=== PATIENT | female | born 1990 | race Caucasian/White ===

== ENCOUNTER 2016-05-09 11:34 | Outpatient (CLI) | payer BC ==
[~2016-05-09] VITALS: Ht 160 cm; Wt 71.2 kg
--- OUTSIDE RECORDS SUMMARY | 2016-05-09 11:37 | XMS REPORT ---
Author Author NELI ELI [facility] [place] eClinicalWorks Address Unknown Phone Unavailable Care Team Providers Care Hard Tile Setter Name Role Phone NELI ELI Unavailable Allergies No Known Allergies Problems Problem Type Condition ICD-9 Code Onset Dates Condition Status Assessment Screening for substance abuse V82.9 Active Assessment Encounter for tuberculin skin test V74.1 Active Assessment Examination, physical, employee V70.5 Active Medications No Known Medications Procedures Procedure Coding System Code Date TB INTRADERMAL TEST CPT-4 33495 Oct 08, 2014 Office Visit, Est Pt., Level 2 CPT-4 00551 Oct 08, 2014 DRUG SCREEN NON TLC DEVICES CPT-4 31002 Oct 08, 2014 Vital Signs Date/Time: Oct 08, 2014 Blood Pressure Systolic 128 mmHg Cardiac Monitoring Heart Rate 100 bpm Temperature 97.8 F Blood Pressure Diastolic 70 mmHg Results No Known Results Summary Purpose eClinicalWorks Submission
[2016-05-09 11:50] VITALS: BP 144/91
[2016-05-09 12:00] VITALS: BP 135/89
[2016-05-09 12:20] VITALS: BP 133/84
[2016-05-09] MEDS ORDERED: PREN1TAB86 PO (12:27)
[2016-05-09 12:29] LABS: BASOPHILS % (AUTO) 0 % (0-10); EOSINOPHILS # (AUTO) 0.4 10^3/uL (0.0-0.3); EOSINOPHILS % (AUTO) 3 % (0-10); LYMPHOCYTES % (AUTO) 17 % (12-44); MEAN CORPUSCULAR HEMOGLOBIN 31 PG (25-34); MEAN CORPUSCULAR HGB CONC 35 G/DL (32-36); MEAN CORPUSCULAR VOLUME 89 FL (80-99); MEAN PLATELET VOLUME 11.5 FL (7.4-10.4); MONOCYTES # (AUTO) 0.8 X 10^3 (0.0-1.0); MONOCYTES % (AUTO) 7 % (0-12); NEUTROPHILS # (AUTO) 8.8 X 10^3 (1.8-7.8); NEUTROPHILS % (AUTO) 73 % (42-75); PLATELET COUNT 180 10^3/uL (130-400); RED BLOOD COUNT 4.12 10^6/uL (4.35-5.85); RED CELL DISTRIBUTION WIDTH 13.5 % (10.0-14.5); WHITE BLOOD COUNT 12.1 10^3/uL (4.3-11.0)
[2016-05-09 12:35] VITALS: BP 118/79
[2016-05-09 12:48] LABS: ALANINE AMINOTRANSFERASE 9 U/L (0-55); ANION GAP 11 MMOL/L (5-14); ASPARTATE AMINO TRANSFERASE 12 U/L (5-34); BILIRUBIN,TOTAL 0.1 MG/DL (0.1-1.0); BLOOD UREA NITROGEN 10 MG/DL (7-18); BUN/CREATININE RATIO 14; CALCIUM 8.9 MG/DL (8.5-10.1); CARBON DIOXIDE 18 MMOL/L (21-32); CHLORIDE 109 MMOL/L (98-107); CREATININE SERUM 0.71 MG/DL (0.60-1.30); GFR ESTIMATED > 60; GLUCOSE 100 MG/DL (70-105); LACTATE DEHYDROGENASE 130 U/L (125-220); POTASSIUM 3.9 MMOL/L (3.6-5.0); SODIUM 138 MMOL/L (135-145); TOTAL PROTEIN 5.7 G/DL (6.4-8.2)
[2016-05-09 12:50] VITALS: BP 120/79
--- NOTE | 2016-05-09 20:01 | Physician Query-Final Dx ---
Clinic Account Progress/Dx Physician Query: Date of Service May 09, 2016 at 11:34 DIAGNOSIS: Diagnosis third trimester right upper quadrant pain BENSON URBINA DO May 09, 2016 20:01
[2016-05-27] MEDS ORDERED: DOCU100C37 PO (12:06)
[2016-05-27] MEDS ORDERED: HYDR-3812 PO (12:06)
[2016-05-27] MEDS ORDERED: IBUP-1780 PO (12:06)
== END 2016-05-09 13:10 | disposition home or self-care (01) ==
LOC: WSo 11:34 → LDRP 11:34 → WSo 13:10
PROVIDERS: ATTEND Obstetrics & Gynecology
DX: O99.89 Other specified diseases and conditions complicating pregnancy, childbirth and the puerperium (principal); R10.11 Right upper quadrant pain; Z3A.38 38 weeks gestation of pregnancy
CPT/HCPCS: 36415; 80053; 83615; 84550; 85025; 99213

== ENCOUNTER 2016-05-24 10:55 | Inpatient (IN) | payer BC ==
[2016-05-24] VITALS (14 sets, daily range): BP systolic 119–143; BP diastolic 68–94
[~2016-05-24] VITALS: Ht 152.4 cm; Wt 72.1 kg
[~2016-05-24 10:55] MED LIST: PREN1TAB86 PO
[2016-05-24] MEDS ORDERED: NS IV 1000 ML 1,000 ML ONE (11:32)
[2016-05-24] MEDS ORDERED: MISOPROSTOL 100 MCG (CYTOTEC) TAB PO ONE ×2 (11:45→16:00)
[2016-05-24 12:05] LABS: BASOPHILS % (AUTO) 0 % (0-10); EOSINOPHILS # (AUTO) 0.4 10^3/uL (0.0-0.3); EOSINOPHILS % (AUTO) 4 % (0-10); LYMPHOCYTES # (AUTO) 2.1 X 10^3 (1.0-4.0); LYMPHOCYTES % (AUTO) 19 % (12-44); MEAN CORPUSCULAR HEMOGLOBIN 31 PG (25-34); MEAN CORPUSCULAR HGB CONC 35 G/DL (32-36); MEAN CORPUSCULAR VOLUME 90 FL (80-99); MEAN PLATELET VOLUME 12.2 FL (7.4-10.4); MONOCYTES # (AUTO) 0.7 X 10^3 (0.0-1.0); MONOCYTES % (AUTO) 6 % (0-12); NEUTROPHILS # (AUTO) 8.1 X 10^3 (1.8-7.8); NEUTROPHILS % (AUTO) 71 % (42-75); PLATELET COUNT 178 10^3/uL (130-400); RED BLOOD COUNT 4.24 10^6/uL (4.35-5.85); RED CELL DISTRIBUTION WIDTH 13.9 % (10.0-14.5); WHITE BLOOD COUNT 11.4 10^3/uL (4.3-11.0)
[2016-05-24] MEDS: D5 LR IV SOLUTION 1,000 ML IV SCH ×2 (12:55→20:45)
[2016-05-24 13:34] LABS: BILIRUBIN,URINE NEGATIVE (NEGATIVE); KETONES,URINE NEGATIVE (NEGATIVE); LEUKOCYTE ESTERASE ,URINE 1+ (NEGATIVE); NITRITE,URINE NEGATIVE (NEGATIVE); PH,URINE 7 (5-9); PROTEIN,URINE NEGATIVE (NEGATIVE); UROBILINOGEN,URINE NORMAL (NORMAL)
[2016-05-24 13:54] LABS: WBC,URINE RARE /HPF
[2016-05-24] MEDS ORDERED: CATHETER FLUSH 10 ML SYR IV SCH (14:00)
--- NOTE | 2016-05-24 16:55 | History & Physical-OB ---
OB - Chief Complaint & HPI Date Date of Admission: Date of Admission: May 24, 2016 at 10:55 am Chief Complaint/History OB-Reason for Admission/Chief: Induction of Labor Hx : 1 Hx Para: 0 Expected Date of Delivery: May 19, 2016 Gestational Age in Weeks: 40 Gestational Age in Days: 5 Indication for induction: post dates, medical complication (GHTN in office today) Admission Nurse Assessment Rev: Yes History of Labs A pos Antibody neg RI RPR NR HBsAg NR HIV NR GC neg GBS neg Allergies and Home Medications Allergies Coded Allergies: No Known Drug Allergies (Unverified , 05/09/16) Home Medications Vit W-Ca,Fe,FA(<1 mg) 1 Each Tablet, 1 EACH PO DAILY, (Reported) OB - History Hx of Present Care: Yes Ultrasounds: Normal mid trimester US Obstetrical Complications: Gestational Hypertension, Other (Post dates) Medical Complications: None Delivery History Adverse Rxn to Tranfusion: No Patient Past Medical History n/a Social History/Family History Recent Infectious Disease Expo: No Alcohol Use: Denies Use Recreational Drug Use: No Immunizations Date of Influenza Vaccine: Dec 04, 2015 OB - Admission Exam Physical Exam Vitals: Vital Signs 05/24/16 05/24/16 11:05 15:00 Temp 99.0 Pulse 82 Resp 18 B/P (MAP) 131/81 O2 Delivery Room Air HEENT: NCAT Heart: Rhythm Normal Lungs: Clear Abdomen: Gravid Extremities: Normal Reflexes: Normal Cervical Dilatation: 1cm Effacement: 75% Station: -1 Membranes: Intact Heart Rate: 130's Decelerations: No Decelerations Short Term Variability: Present Half-Way Variability: Average (6-25) Contractions on Admission: >10 Minutes Apart Intensity: Mild Cuevas Scoring Tool (Modified) Dilation (cm): 1-2cm (1) Effacement (%): 51-79% (2) Descent/Station: -2 (1) Cervix Consistency: Soft (2) Cervix Position: Anterior (2) Subtract 1 point for: Nulliparity (-1) Cuevas Score: 7 Labs Laboratory Tests Test 05/24/16 11:45 05/24/16 11:55 Range/Units White Blood Count 11.4 H 4.3-11.0 10^3/uL Red Blood Count 4.24 L 4.35-5.85 10^6/uL Hemoglobin 13.1 11.5-16.0 G/DL Hematocrit 38 35-52 % Mean Corpuscular Volume 90 80-99 FL Mean Corpuscular Hemoglobin 31 25-34 PG Mean Corpuscular Hemoglobin Concent 35 32-36 G/DL Red Cell Distribution Width 13.9 10.0-14.5 % Platelet Count 178 130-400 10^3/uL Mean Platelet Volume 12.2 H 7.4-10.4 FL Neutrophils (%) (Auto) 71 42-75 % Lymphocytes (%) (Auto) 19 12-44 % Monocytes (%) (Auto) 6 0-12 % Eosinophils (%) (Auto) 4 0-10 % Basophils (%) (Auto) 0 0-10 % Neutrophils # (Auto) 8.1 H 1.8-7.8 X 10^3 Lymphocytes # (Auto) 2.1 1.0-4.0 X 10^3 Monocytes # (Auto) 0.7 0.0-1.0 X 10^3 Eosinophils # (Auto) 0.4 H 0.0-0.3 10^3/uL Basophils # (Auto) 0.0 0.0-0.1 10^3/uL Urine Color YELLOW Urine Clarity CLEAR Urine pH 7 5-9 Urine Specific Orrum 1.005 L 1.016-1.022 Urine Protein NEGATIVE NEGATIVE Urine Glucose (UA) NEGATIVE NEGATIVE Urine Ketones NEGATIVE NEGATIVE Urine Nitrite NEGATIVE NEGATIVE Urine Bilirubin NEGATIVE NEGATIVE Urine Urobilinogen NORMAL NORMAL MG/DL Urine Leukocyte Esterase 1+ H NEGATIVE Urine RBC (Auto) NEGATIVE NEGATIVE Urine RBC NONE /HPF Urine WBC RARE /HPF Urine Squamous Epithelial Cells 5-10 /HPF Urine Crystals NONE /LPF Urine Bacteria FEW H /HPF Urine Casts NONE /LPF Urine Mucus NEGATIVE /LPF Urine Culture Indicated NO OB - Assessment/Plan/Diagnosis Assessment Assessment: induction of labor Plan Induction Method: per Misoprostol Protocol Discharge Diagnosis Diagnosis: 25 yo @ 40.5 Post dates GHTN GBS neg LATOYA DRAKE DO May 24, 2016 4:55 pm
[2016-05-24] MEDS ORDERED: CETI10CA PO (17:35)
[2016-05-24] MEDS ORDERED: MISOPROSTOL 100 MCG (CYTOTEC) TAB ONE (21:22)
[2016-05-24] MEDS: MISOPROSTOL 100 MCG (CYTOTEC) TAB PO SCH (21:29)
[2016-05-25] VITALS (66 sets, daily range): BP systolic 106–165; BP diastolic 55–98
[2016-05-25] MEDS: MISOPROSTOL 100 MCG (CYTOTEC) TAB PO SCH ×2 (01:27→05:31)
[2016-05-25] MEDS: D5 LR IV SOLUTION 1,000 ML IV SCH ×2 (04:35→12:24)
[2016-05-25] MEDS ORDERED: ONDANSETRON 4 MG/2 ML (SDV) Z0FRAN IVP ONE (06:00)
[2016-05-25] MEDS: LACTATED RINGERS 1,000 ML IV ONE ×2 (08:37→09:37)
[2016-05-25] MEDS ORDERED: SUFENTA 0.6MCG/ML BUPIVA 0.125 100 ML ONE (08:49)
[2016-05-25] MEDS ORDERED: BUPIVACAINE 0.25% 30 ML (SENSORCAINE) VIAL ONE (09:04)
[2016-05-25] MEDS ORDERED: fentaNYL INJECTION 100 MCG/2 ML AMP ONE ×2 (09:04→18:59)
[2016-05-25] MEDS ORDERED: LIDOCAINE PF 2% 10 ML (XYLOCAINE) AMP ONE ×2 (09:05→18:59)
[2016-05-25] MEDS ORDERED: diphenhydrAMINE 50 MG/ML INJ (BENADRYL) IV PRN (10:00)
[2016-05-25] MEDS ORDERED: NALOXONE 0.4 MG/ML 1 ML (NARCAN) VIAL IV PRN (10:00)
[2016-05-25] MEDS ORDERED: EPIDURAL (SUFENTA 0.6MCG/ML BUPIVA 0.125%) 100 ML BAG EPI SCH (10:00)
[2016-05-25] MEDS ORDERED: ONDANSETRON 4 MG/2 ML (SDV) Z0FRAN IV PRN (10:00)
[2016-05-25] MEDS ORDERED: LIDOCAINE PF 2% 10 ML (XYLOCAINE) AMP INJ ONE (10:00)
[2016-05-25] MEDS ORDERED: CATHETER FLUSH 10 ML SYR IV PRN ×2 (10:00→18:45)
[2016-05-25] MEDS ORDERED: BUPIVACAINE 0.25% 30 ML (SENSORCAINE) VIAL INJ ONE (10:00)
[2016-05-25] MEDS ORDERED: fentaNYL INJECTION 100 MCG/2 ML AMP INJ ONE (10:00)
[2016-05-25] MEDS ORDERED: OXYTOCIN/NORMAL SALINE 500 ML IV SCH (10:12)
[2016-05-25] MEDS ORDERED: OXYTOCIN/NORMAL SALINE 500 ML IV ONE ×3 (10:13→19:33)
[2016-05-25] MEDS ORDERED: ACETAMINOPHEN 500 MG TAB (TYLENOL) PO NR (14:30)
[2016-05-25] MEDS ORDERED: MINERAL OIL CONCENTRATE 99.9% 15 ML UDC ONE (17:38)
[2016-05-25] MEDS ORDERED: LIDOCAINE/EPI 1%-1:200,000 (XYLOCAINE) 30 ML VIAL ONE (17:38)
[2016-05-25] MEDS ORDERED: NS (IVPB) 50 ML ONE (18:40)
[2016-05-25] MEDS ORDERED: ceFAZolin 1,000 MG (ANCEF) VIAL ONE (18:40)
[2016-05-25] MEDS ORDERED: FAMOTIDINE 20MG/2ML IV (PEPCID) IV ONE (18:45)
[2016-05-25] MEDS ORDERED: METOCLOPRAMIDE INJ 10 MG/2 ML (REGLAN) IV ONE (18:45)
[2016-05-25] MEDS ORDERED: CITRIC ACID/SOB CIT (BICITRA) 30 ML UDC PO ONE (18:45)
[2016-05-25] MEDS ORDERED: ceFAZolin INJECTION 1,000 MG in NS (IVPB) 50 ML IV ONE (18:45)
--- NOTE | 2016-05-25 18:49 | Progress Note-Standard ---
Standard Progress Note Progress Notes/Assess & Plan Progress/Assessment & Plan This 25-year-old female was admitted last evening for induction of labor due to gestational hypertension noted at her post dates visit at 40 weeks. The patient was given cervical ripening overnight with misoprostol, and had spontaneous rupture membranes at approximate 6 a.m. this morning. The patient became uncomfortable around 830 and it made a moderate amount of cervical change from her admission to 4 cm and requested an epidural. After receiving her epidural she was started on Pitocin to augment her labor pattern and achieve an adequate contraction pattern. The patient then slowly progressed throughout the day to complete at approximately 4 o'clock this afternoon, she was allowed to labor down as station of the vertex was found to be 0 to - 1. Active pushing was started at approximately 5 o'clock, at which point I presented about 630 to evaluate the patient. The skull had no progress past previously mentioned 0 to -1 station however there was a significant amount of caput noted. There was also some low-grade temperatures noted above 100.4, Tylenol was given intrapartum as well. Due to cephalopelvic disproportion discussed the patient proceed with delivery. Risk of this procedure was discussed with the patient in detail, after all of her questions were answered with her and mother present consent is obtained and we await anesthesia debris and the procedure. LATOYA DRAKE DO May 25, 2016 6:49 pm
[2016-05-25] MEDS ORDERED: BUPIVACAINE 0.5% 30 ML (SENSORCAINE) VIAL ONE (18:59)
[2016-05-25] MEDS ORDERED: ONDANSETRON 4 MG/2 ML (SDV) Z0FRAN ONE (18:59)
[2016-05-25] MEDS ORDERED: LACTATED RINGERS 1,000 ML IV ONE (18:59)
[2016-05-25] MEDS ORDERED: KETOROLAC 30 MG/ML VIAL ONE (19:00)
[2016-05-25] MEDS ORDERED: MEASLES,MUMPS,RUBELLA 1 EA INJ SC SCH (19:30)
[2016-05-25] MEDS ORDERED: TETANUS,DIPTH,PERTUSS P/F (BOOSTRIX) 0.5 ML VIAL IM SCH (19:30)
[2016-05-25] MEDS ORDERED: HYDROmorphone (DILAUDID) 2 MG/ML VIAL IVP PRN (19:30)
[2016-05-25] MEDS: KETOROLAC 30 MG/ML VIAL IVP SCH (19:30)
[2016-05-25] MEDS: DOCUSATE SODIUM 100 MG (COLACE) CAP PO SCH (21:19)
[2016-05-25] MEDS ORDERED: CATHETER FLUSH 10 ML SYR IV SCH (22:00)
[2016-05-25] MEDS: HYDROcodone/APAP 5 MG/325 MG (LORTAB) TAB PO PRN ×2 (22:12→23:05)
[2016-05-26] MEDS: KETOROLAC 30 MG/ML VIAL IVP SCH ×2 (01:55→08:37)
[2016-05-26 04:05] VITALS: BP 112/62
[2016-05-26 06:24] LABS: BASOPHILS % (AUTO) 0 % (0-10); EOSINOPHILS # (AUTO) 0.2 10^3/uL (0.0-0.3); EOSINOPHILS % (AUTO) 1 % (0-10); LYMPHOCYTES # (AUTO) 2.4 X 10^3 (1.0-4.0); LYMPHOCYTES % (AUTO) 13 % (12-44); MEAN CORPUSCULAR HEMOGLOBIN 31 PG (25-34); MEAN CORPUSCULAR HGB CONC 34 G/DL (32-36); MEAN CORPUSCULAR VOLUME 91 FL (80-99); MEAN PLATELET VOLUME 11.9 FL (7.4-10.4); MONOCYTES # (AUTO) 1.2 X 10^3 (0.0-1.0); MONOCYTES % (AUTO) 7 % (0-12); NEUTROPHILS # (AUTO) 13.8 X 10^3 (1.8-7.8); NEUTROPHILS % (AUTO) 79 % (42-75); PLATELET COUNT 165 10^3/uL (130-400); RED BLOOD COUNT 3.64 10^6/uL (4.35-5.85); RED CELL DISTRIBUTION WIDTH 13.9 % (10.0-14.5); WHITE BLOOD COUNT 17.5 10^3/uL (4.3-11.0)
[2016-05-26 07:45] VITALS: BP 136/78
[2016-05-26] MEDS: HYDROcodone/APAP 5 MG/325 MG (LORTAB) TAB PO PRN ×2 (08:36→13:01)
[2016-05-26] MEDS: DOCUSATE SODIUM 100 MG (COLACE) CAP PO SCH ×2 (08:36→21:05)
--- NOTE | 2016-05-26 09:19 | Progress Note-Standard ---
Standard Progress Note Progress Notes/Assess & Plan Progress/Assessment & Plan Patient is POD 1 from PLT. Pain well controlled. Ambulating and voiding freely. No other concerns voiced. Lochia light. Vital Sign - Last 24 Hours 05/25/16 05/25/16 05/25/16 05/25/16 09:20 09:23 09:26 09:29 Pulse 76 75 81 80 Resp 20 20 20 20 B/P (MAP) 155/94 144/86 151/91 156/90 Pulse Ox 99 99 98 98 O2 Delivery Room Air Room Air Room Air Room Air 05/25/16 05/25/16 05/25/16 05/25/16 09:32 09:35 09:40 09:43 Pulse 91 83 93 78 Resp 20 20 20 20 B/P (MAP) 157/90 131/82 130/75 129/67 Pulse Ox 98 99 99 98 O2 Delivery Room Air Room Air Room Air Room Air 05/25/16 05/25/16 05/25/16 05/25/16 09:46 09:50 09:55 10:02 Temp 100.4 98.9 Pulse 98 96 85 94 Resp 18 20 20 18 B/P (MAP) 129/71 134/74 117/75 121/65 Pulse Ox 97 98 98 O2 Delivery Room Air Room Air Room Air Room Air 05/25/16 05/25/16 05/25/16 05/25/16 10:06 10:12 10:17 10:23 Pulse 97 76 91 92 Resp 20 20 20 18 B/P (MAP) 128/84 117/67 119/77 119/70 O2 Delivery Room Air Room Air Room Air Room Air 05/25/16 05/25/16 05/25/16 05/25/16 10:27 10:32 10:52 11:06 Pulse 87 87 80 75 Resp 18 18 18 18 B/P (MAP) 116/74 109/69 121/74 112/67 O2 Delivery Room Air Room Air Room Air Room Air 05/25/16 05/25/16 05/25/16 05/25/16 11:22 11:35 11:52 12:05 Temp 99.7 Pulse 75 69 73 71 Resp 18 18 18 18 B/P (MAP) 118/69 114/68 120/69 112/68 O2 Delivery Room Air Room Air Room Air Room Air 305/25/16 05/25/16 05/25/16 12:22 12:35 12:51 13:06 Temp 99.0 Pulse 71 71 77 81 Resp 18 18 18 18 B/P (MAP) 118/72 120/76 124/65 115/64 O2 Delivery Room Air Room Air Room Air Room Air 05/25/16 05/25/16 05/25/16 05/25/16 13:20 13:35 13:51 14:06 Temp 100.4 101.0 Pulse 81 86 76 74 Resp 18 18 18 18 B/P (MAP) 119/67 129/84 106/59 120/57 O2 Delivery Room Air Room Air Room Air Room Air 05/25/16 05/25/16 05/25/16 05/25/16 14:21 14:36 14:50 15:06 Pulse 76 74 78 84 Resp 18 18 18 18 B/P (MAP) 119/55 109/56 113/57 115/62 O2 Delivery Room Air Room Air Room Air Room Air 05/25/16 05/25/16 05/25/16 05/25/16 15:21 15:36 15:51 16:07 Temp 100.1 100.4 Pulse 81 88 88 75 Resp 18 18 18 18 B/P (MAP) 118/60 128/75 128/75 123/66 O2 Delivery Room Air Room Air Room Air Room Air 05/25/16 05/25/16 05/25/16 05/25/16 16:20 16:35 16:51 17:05 Temp 99.9 Pulse 77 75 93 97 Resp 18 18 18 18 B/P (MAP) 135/92 140/97 119/76 134/87 O2 Delivery Room Air Room Air Room Air Room Air 05/25/16 05/25/16 05/25/16 05/25/16 17:23 17:36 17:50 18:06 Temp 99.7 Pulse 80 85 80 144 Resp 18 18 18 18 B/P (MAP) 128/79 125/78 131/83 131/73 O2 Delivery Room Air Room Air Room Air Room Air 05/25/16 05/25/16 05/25/16 05/25/16 18:22 18:35 18:50 21:59 Temp 98.1 Pulse 141 97 102 87 Resp 18 18 18 18 B/P (MAP) 165/80 148/70 142/77 120/74 Pulse Ox 95 O2 Delivery Room Air Room Air Room Air Room Air 05/25/16 05/26/16 23:50 04:05 Temp 98.1 98.8 Pulse 84 84 Resp 18 18 B/P (MAP) 117/64 112/62 Pulse Ox 97 96 O2 Delivery Room Air Room Air Intake and Output 05/25/16 05/25/16 05/26/16 15:00 23:00 07:00 Intake Total 1000 ml 50 ml 2300 ml Output Total 75 ml 600 ml Balance 1000 ml -25 ml 1700 ml Laboratory Tests Test 05/26/16 06:00 Range/Units White Blood Count 17.5 H 4.3-11.0 10^3/uL Red Blood Count 3.64 L 4.35-5.85 10^6/uL Hemoglobin 11.2 L 11.5-16.0 G/DL Hematocrit 33 L 35-52 % Mean Corpuscular Volume 91 80-99 FL Mean Corpuscular Hemoglobin 31 25-34 PG Mean Corpuscular Hemoglobin Concent 34 32-36 G/DL Red Cell Distribution Width 13.9 10.0-14.5 % Platelet Count 165 130-400 10^3/uL Mean Platelet Volume 11.9 H 7.4-10.4 FL Neutrophils (%) (Auto) 79 H 42-75 % Lymphocytes (%) (Auto) 13 12-44 % Monocytes (%) (Auto) 7 0-12 % Eosinophils (%) (Auto) 1 0-10 % Basophils (%) (Auto) 0 0-10 % Neutrophils # (Auto) 13.8 H 1.8-7.8 X 10^3 Lymphocytes # (Auto) 2.4 1.0-4.0 X 10^3 Monocytes # (Auto) 1.2 H 0.0-1.0 X 10^3 Eosinophils # (Auto) 0.2 0.0-0.3 10^3/uL Basophils # (Auto) 0.0 0.0-0.1 10^3/uL Incision: c/d/i Diagnosis: POD 1 PLTCS CPD GHTN Plan: continue routine PO care anticipate dc tomorrow pending progression LATOYA DRAKE DO May 26, 2016 9:19 am
[2016-05-26 12:08] VITALS: BP 120/75
[2016-05-26] MEDS ORDERED: IBUPROFEN 600 MG (MOTRIN) TAB PO ONE (14:37)
--- NOTE | 2016-05-26 14:52 | Anesthesia-Regional Post-Op ---
Regional Patient Condition Mental Status: Alert, Oriented x3 Circulation: Same as Pre-Op Headache: Absent Sensation: Full Recovery Motor Block: Absent Post Op Complications Complications None Follow Up Care/Instructions Patient Instructions None needed. Anesthesia/Patient Condition Patient is doing well, no complaints, stable vital signs, no apparent adverse anesthesia problems. No complications reported per nursing. SARAHY DUFF CRNA May 26, 2016 14:52
[2016-05-26 16:00] VITALS: BP 128/75
[2016-05-26] MEDS ORDERED: IBUPROFEN 800 MG (MOTRIN) TAB PO ONE (20:54)
[2016-05-26 21:05] VITALS: BP 124/77
[2016-05-26] MEDS: IBUPROFEN 800 MG (MOTRIN) TAB PO SCH (21:05)
[2016-05-27] MEDS: IBUPROFEN 800 MG (MOTRIN) TAB PO SCH ×2 (02:54→09:39)
[2016-05-27 03:30] VITALS: BP 130/81
[2016-05-27] MEDS: HYDROcodone/APAP 5 MG/325 MG (LORTAB) TAB PO PRN (03:32)
[2016-05-27] MEDS: KETOROLAC 30 MG/ML VIAL IVP SCH (08:20)
[2016-05-27 09:00] VITALS: BP 122/88
--- NOTE | 2016-05-27 09:21 | OPERATIVE REPORT ---
PROCEDURE PHYSICIAN: JEYSON DRAKE DATE OF PROCEDURE: 05/25/2016 PREOPERATIVE DIAGNOSIS: 1. 25-year-old G1, P0 at 40 weeks gestation. 2. tachycardia. 3. Cephalopelvic disproportion. POSTOPERATIVE DIAGNOSES: 1. 25-year-old G1, P0, at 40 weeks gestation. 2. tachycardia. 3. Cephalopelvic disproportion. PROCEDURE: Primary low transverse section. SURGEON: Dr. Jeyson Drake. FLOOR STEWARD/STEWARDESS: Alie Ramírez APRN, who was required for adequate retraction and manipulation of structures during the procedure. ANESTHESIA: Bolused epidural. ESTIMATED BLOOD LOSS: 350 mL. URINE OUTPUT: 100 mL, clear at the end of the procedure. FLUIDS: 1300 mL of lactated ringer solution. FINDINGS: Findings is a live male infant weighing 7 pounds 11 ounces, Apgars 8 and 9. Grossly normal appearing uterus, bilateral fallopian tubes, and ovaries. SPECIMEN SENT: Placenta. INDICATIONS FOR THE PROCEDURE: This 25-year-old female was brought in for induction. Please see preoperative note for complete details, pertaining to indications for procedure as well as her labor course in detail, as well as risk discussed. The patient was taken to the operating room, where epidural analgesia is bolused. The patient was placed in the supine position with leftward tilt, prepped and draped in the normal sterile fashion. A timeout is performed and anesthesia is tested. Once anesthesia is tested and found to be adequate, make a Pfannenstiel skin incision using a knife and carried down to the underlying fascia using Bovie cautery. The fascial incision was extended laterally using Bovie cautery. The superior aspect of the fascial incision was then grasped with Shoshana clamps, tented upward and dissected off the underlying rectus muscles. The inferior aspect of the fascial incision was then grasped with Shoshana clamps, tented upward and dissected off the underlying rectus muscles. The rectus muscles were then dissected down the midline using Griffin scissors exposing the peritoneum which is entered bluntly and extended using Metzenbaum scissors carefully with visualizing underlying bowel and bladder. One adequate peritoneal access is obtained Leo ring retractor was placed in the peritoneal incision which offers excellent lateral sidewall retraction. I then identify the lower uterine segment which was found to be thinned out. I make an incision through the vesicouterine peritoneum and then bluntly dissect the peritoneum off of the lower uterine segment. I then proceed with my myotomy until membranes are visualized at which point I rupture them iatrogenically using extension of this incision and extend the incision laterally and superiorly using banded scissors. I then find the in the vertex presentation occiput posterior. I elevate the infant's head up to the incision where it is delivered through the incision. With gentle fundal pressure the nares and oropharynx are bulb suctioned. Anterior posterior shoulders are delivered and is brought to the operative field where the cord is doubly clamped and cut and the infant is handed off to the awaiting pediatric nurses in attendance. The cord blood was collected, three vessel cord with intact placenta is delivered spontaneously thereafter. IV Pitocin is initiated to facilitate uterine contraction. Uterine fundus becomes firmer by manual massage. The uterus is then exteriorized and cleared of endometrial clots and debris. I then close the uterine incision using 0 Vicryl suture in a running lock fashion. A second layer of imbricating 0 Monocryl is placed. Excellent hemostasis is noted after doing so. I then placed the uterus back within the pelvis and copiously irrigate the pelvis using normal saline. There is no active bleeding noted from any my dissection planes. I then place intercede and antiadhesive over my low transverse incision and proceed with closing the peritoneum using 3-0 Vicryl suture in a running fashion. The rectus muscles are reapproximated using 3-0 Vicryl suture in an interrupted fashion. The fascia is reapproximated using 0 Vicryl suture in a running fashion. Subcutaneous tissues reapproximated using 3-0 plain in interrupted subcutaneous stitch and the skin is reapproximated using 4-0 Monocryl in a running, subcuticular. Dermabond is applied to the incision, sterile dressing and adhesed white tape. The patient tolerated the procedure well and was taken to the recovery area in stable condition. Lap and sponge counts correct at the end of the procedures, instrument count is correct as well. 1 gram of Ancef given preoperatively for infection prophylaxis. Job ID: [id number] Dictated Date: 05/25/2016 19:56:59 Regional Operations Manager Date: 05/27/2016 09:07:58 / trudy
[2016-05-27] MEDS: DOCUSATE SODIUM 100 MG (COLACE) CAP PO SCH (09:39)
[2016-05-27] MEDS ORDERED: IBUP-1780 PO (12:06)
[2016-05-27] MEDS ORDERED: HYDR-3812 PO (12:06)
[2016-05-27] MEDS ORDERED: DOCU100C37 PO (12:06)
--- NOTE | 2016-05-27 12:07 | Discharge Inst-Women's Service ---
Discharge Inst-Women's Serv Depart Medication/Instructions New, Converted or Re-Newed RX: RX on Chart Consults/Follow Up Additional Follow Up: Yes Orders/Referrals Dr. Anderson in 7-10 days and in 6 weeks Activity Activity: Activity as Tolerated Driving Instructions: No Driving for 1 Week NO SMOKING: NO SMOKING Nothing Inside Vagina: No Douching, No [place], No Tampons Diet Discharge Diet: No Restrictions Symptoms to Report to : Bleeding Excessive, Pain Increased, Fever Over 101 Degrees F, Vaginal Bleeding Increase, Questions/Concerns For Any Problems or Questions: Contact Your Physician Skin/Wound Care Infection Signs and Symptoms: Increased Redness, Foul Odor of Wound, Increased Drainage, Skin Itchy or Has a Rash, Increased Swelling, Temperature Above 101 F Operative Area Clean and Dry: Keep Incision Clean/Dry Stitches/Morro/Dermabond: Dermabond, Care of Stitches Bathing Instructions: LATOYA Dior DO May 27, 2016 12:07 pm
--- NOTE | 2016-05-27 12:08 | Progress Note-Standard ---
Standard Progress Note Progress Notes/Assess & Plan Progress/Assessment & Plan Patient is POD 2 from PLTCS. Pain well controlled. Ambulating and voiding freely. No other concerns voiced. Lochia light. Vital Sign - Last 24 Hours 05/26/16 05/26/16 05/27/16 05/27/16 16:00 21:05 03:30 09:00 Temp 98.6 98.0 98.1 97.8 Pulse 91 89 93 79 Resp 16 16 16 18 B/P (MAP) 128/75 124/77 130/81 122/88 Pulse Ox 97 98 98 98 O2 Delivery Room Air Room Air Room Air Intake and Output 05/26/16 05/26/16 05/27/16 15:00 23:00 07:00 Intake Total 1950 ml 1500 ml Output Total 2400 ml 3600 ml Balance -450 ml -2100 ml Incision: c/d/i Diagnosis: POD 2 PLTCS CPD GHTN Plan: continue routine PO care anticipate dc today PP/PO precautions reviewed LATOYA DRAKE DO May 27, 2016 12:08 pm
[2016-05-27 14:35] VITALS: BP 122/80
--- NOTE | 2016-06-03 13:28 | DISCHARGE SUMMARY ---
DATE OF ADMISSION: 05/24/2016 ADMISSION DIAGNOSIS: 1. 25-year-old G1, P0, at 40 weeks and 5 days gestation. 2. Postdate. 3. Gestational hypertension. 4. GBS negative. DISCHARGE DATE: 05/27/2016 DISCHARGE DIAGNOSIS: 1. 25-year-old G1, P0 at 40 weeks and 5 days gestation. 2. Postdate. 3. Gestational hypertension. 4. GBS negative. 5. Postop day 2, primary low transverse section. 6. Cephalopelvic disproportion. SERVICE: Woman services. ATTENDING PHYSICIAN: Dr. Jeyson Anderson. HOSPITAL COURSE: Hospital course is as follows: Please see admission H\T\P from 05/24/2016 for complete details, pertaining to patient's admission, presentation, physical examination as well as plan of care and indications for induction. Please see operative report for complete details, pertaining to patient's operative report in detail that was dictated on 05/27/2016 as well as indications and labor course. POSTOPERATIVE COURSE: Postoperative course for this patient was fairly routine. Postop day one, the patient was ambulating, voiding well. Her Baxter catheter was discontinued in the recovery area. Vital signs remained stable. Her postoperative hemoglobin was found to be 11.2 and incision remained clean, dry, and intact. She was encouraged to ambulate and use incentive spirometry. On postop day 2, the patient continued to do well. Her pain was well controlled. Lochia was light, ambulating and voiding freely without any concerns. Her blood pressures remained stable. Urine output was adequate. Due to patient's clinical stability, discharge was facilitated on postop day 2. She was given routine postoperative and precautions and discharged on the following medications including: Motrin 600 mg 1 p.o. q.6 hours as needed for pain, number 80. Alcolu 5/325, 1 to 2, p.o. q.4-6 hours p.r.n. as needed for pain, number 50. Colace 100 mg one p.o. b.i.d. p.r.n. as needed for constipation, number 40. She was told to continue her vitamin and her Zyrtec as needed for allergy release. Discharge was facilitated at that point without further difficulties. Job ID: [id number] Dictated Date: 06/03/2016 10:02:42 Medical Artist Date: 06/03/2016 13:21:43/trudy
--- OUTSIDE RECORDS SUMMARY | 2016-06-08 18:04 | XMS REPORT ---
Author Author NELI ELI [facility] eClinicalWorks Address Unknown Phone Unavailable Care Team Providers Care Attendance Clerk Name Role Phone NELI ELI Unavailable Allergies No Known Allergies Problems Problem Type Condition ICD-9 Code Onset Dates Condition Status Assessment Screening for substance abuse V82.9 Active Assessment Encounter for tuberculin skin test V74.1 Active Assessment Examination, physical, employee V70.5 Active Medications No Known Medications Procedures Procedure Coding System Code Date TB INTRADERMAL TEST CPT-4 90357 Oct 08, 2014 Office Visit, Est Pt., Level 2 CPT-4 44780 Oct 08, 2014 DRUG SCREEN NON TLC DEVICES CPT-4 56535 Oct 08, 2014 Vital Signs Date/Time: Oct 08, 2014 Blood Pressure Systolic 128 mmHg Cardiac Monitoring Heart Rate 100 bpm Temperature 97.8 F Blood Pressure Diastolic 70 mmHg Results No Known Results Summary Purpose eClinicalWorks Submission
--- OUTSIDE RECORDS SUMMARY | 2016-06-08 18:04 | XMS REPORT ---
Author NELI Eastman Organization eClinicalWorks Address Unknown Phone Unavailable Care Team Providers Care Carton Stapler Name Role Phone NELI ELI Unavailable Allergies No Known Allergies Problems Problem Type Condition Code Onset Dates Condition Status Assessment Encounter for immunization Z23 Active Medications No Known Medications Procedures Procedure Coding System Code Date TDAP (BOOSTRIX) CPT-4 21490 Dec 23, 2014 SINGLE IMMUNIZATION ADMIN CPT-4 76028 Dec 23, 2014 FLUARIX QUAD (3 & UP)-GSK-2014 CPT-4 81746 Dec 23, 2014 IMMUNIZATION ADMIN, EACH ADD (please include units) CPT-4 40112 Dec 23, 2014 Results No Known Results Immunizations Vaccine Administration Date FLUARIX QUAD (3 & UP)-GSK-2014Dec 23, 2014 TDAP (BOOSTRIX) Dec 23, 2014 Summary Purpose eClinicalWorks Submission
--- OUTSIDE RECORDS SUMMARY | 2016-06-08 18:04 | XMS REPORT | Continuity of Care Document ---
Author Author [facility] Address Unknown Phone Unavailable Allergies Active Description Code Type Severity Reaction Onset Reported/Identified Relationship to Patient Clinical Status Yes penicillamine Drug Allergy 11/10/2010 Yes penicillamine Drug Allergy N/A N/A 11/10/2010 Medications Problems Date Dx Coded Attending Type Code Diagnosis Diagnosed By 11/10/2010 SAMIRA ALEXANDRA DO V70.5 HEALTH EXAMINATION OF DEFINED SUBPOPULATIONS 11/10/2010 V70.5 HEALTH EXAMINATION OF DEFINED SUBPOPULATIONS Procedures Code [place] [address] ROUTINE VENIPUNCTURE 10/26/2013 43213 HEMOGLOBIN (IN-HOUSE) 10/26/2013 90621 GLUCOSE FINGER STICK 10/26/2013 88765 LIPID PANEL 10/26 Results Encounters ACCT No. Visit Date/Time Discharge Status Pt. Type Provider Facility Loc./Unit Complaint [id number] 10/26/2013 10:22:00 10/26/2013 23: 59:59 [place] [id number] 11/10/2010 09:45:00 11/10/2010 23: 59:59 CLS Outpatient
== END 2016-05-27 15:20 | disposition home or self-care (01) | DRG 766 ==
LOC: DELPENDDIS → LDRP 10:55
PROVIDERS: ADMIT Obstetrics & Gynecology; ATTEND Obstetrics & Gynecology
PROC: 3E0P05Z Introduction of Adhesion Barrier into Female Reproductive, Open Approach (ICD-10-PCS; 2016-05-25)
PROC: 10D00Z1 Extraction of Products of Conception, Low, Open Approach (ICD-10-PCS; principal; 2016-05-25 19:10)
DX: O13.3 Gestational [pregnancy-induced] hypertension without significant proteinuria, third trimester (principal); O33.9 Maternal care for disproportion, unspecified; O76 Abnormality in fetal heart rate and rhythm complicating labor and delivery; O48.0 Post-term pregnancy; Z3A.40 40 weeks gestation of pregnancy; Z37.0 Single live birth
CPT/HCPCS: 36415; 81000; 85025; 86850; 86900; 86901; 88307; 94664